=== PATIENT | female | born 1955 | race Caucasian/White ===

== ENCOUNTER 2020-06-08 18:18 | Emergency (ER) | payer OTHER, SELFPAY ==
[2020-06-08 18:38] VITALS: BP 143/82; PULSE 111; RESP 16; TEMP 36.3; O2SAT 96
[2020-06-08 19:19] LABS: Glucose Point of Care 303 (65-105)
--- NOTE | 2020-06-08 19:21 | ED.ABDPAIN ---
HPI - Abdominal Pain General Chief Complaint: Nausea/Vomiting/Diarrhea Stated Complaint: Nausea/Vomitting/Diarrhea Time Seen by Provider: 06/08/20 19:01 Source: patient Mode of arrival: ambulatory Limitations: no limitations History of Present Illness HPI narrative: Patient presents today complaining of a 2-week history of nausea, vomiting, diarrhea, left lower quadrant abdominal pain. She has not vomited in 2 to 3 days, but states that the 2 to 3 days prior to the end of her vomiting states her emesis was blood speckled, then turned black . She continues to have diarrhea 3-4 times per day that is loose. Denies blood or mucus in the stool. Associated symptoms include decreased urination, sweats, chills. Patient describes her left lower quadrant pain as sharp and [id number]. Patient has been able to eat a little bit of cereal and take frequent sips of water. History of diabetes for which she takes Metformin. She has been unable to take her medications for the last 4 to 5 days. She has not been checking her blood sugars as well. Related Data Home Medications Medication Instructions Recorded Confirmed atorvastatin 40 mg PO DAILY 04/11/19 06/08/20 lisinopril 10 mg PO DAILY 04/11/19 06/08/20 metformin 1,000 mg PO BID 04/11/19 06/08/20 albuterol sulfate [ProAir HFA] 2 puff INHALATION PRN PRN 06/08/20 06/08/20 Allergies Allergy/AdvReac Type Severity Reaction Status Date / Time No Known Allergies Allergy Verified 06/08/20 18:26 Review of Systems Review of Systems: Narrative: CONSTITUTIONAL: Denies body aches. + Sweats and chills EYES: Denies visual changes, redness, or discharge. ENT: Denies rhinorrhea, congestion, sore throat, or otalgia. CARDIOVASCULAR: Denies chest pain, palpitations, or edema. RESPIRATORY: Denies cough or dyspnea. GASTROINTESTINAL: + Nausea, vomiting, diarrhea, abdominal pain, decreased appetite GENITOURINARY: Denies dysuria or hematuria.+ Decreased urine output SKIN: Denies rash, itching, or wounds. MUSCULOSKELETAL: Denies back pain, joint pain, or myalgia. NEUROLOGIC: Denies headache, numbness, tingling, or weakness. PSYCH: Denies depression or anxiety. [facility] Past Medical History Medical History (Updated 06/08/20 @ 19:29 by Mallory Del Cid, [facility], ) Delivery with history of Diabetes Hypercholesterolemia Hypertension Social History Social History Gender identity (if verbalized by the patient): Female Comments At time of signature, I have reviewed and agree with nursing past medical, surgical, social and family history unless otherwise noted. Please see nursing chart for further information. There is no relevant family history pertinent to the presenting complaint Exam Narrative: Exam Narrative: GENERAL: Ill-appearing, well-nourished, and in no acute distress. HEAD: Normocephalic, atraumatic. EYES: EOMI. No redness or drainage. Conjunctivae normal. ENT: Mucous membranes pink and slightly dry. Nares clear. No rhinorrhea. TMs normal bilaterally. Throat normal. Uvula midline. NECK: Normal AROM. Supple. No lymphadenopathy. CHEST: No respiratory distress. Clear to auscultation. HEART: Regular rate and rhythm. No murmur appreciated. Normal peripheral pulses. ABDOMEN: Soft, nondistended, normal active bowel sounds. + Tenderness to the left lower quadrant without rebound or guarding. MUSCULOSKELETAL: No bony tenderness. EXTREMITIES: Normal range of motion. No edema. SKIN: Warm, dry, no rash. Capillary refill normal. Slight tenting of skin. Mild generalized skin pallor. NEURO: No focal deficits. Alert and oriented x3. Gait steady. PSYCH: Normal affect. No signs of depression or anxiety. Course Vital Signs Vital signs: Vital Signs Temperature 97.4 F L 06/08/20 18:38 Pulse Rate 111 H 06/08/20 18:38 Respiratory Rate 16 06/08/20 18:38 Blood Pressure 143/82 H 06/08/20 18:38 Pulse Oximetry 96 06/08
== END 2020-06-08 19:22 | disposition short-term general hospital (02) ==
PROVIDERS: Emergency Provider Nurse Practitioner; PCP Family Medicine
DX: E86.0 Dehydration (principal); E11.65 Type 2 diabetes mellitus with hyperglycemia; Z79.84 Long term (current) use of oral hypoglycemic drugs; R19.7 Diarrhea, unspecified; E11.9 Type 2 diabetes mellitus without complications; E78.00 Pure hypercholesterolemia, unspecified; I10 Essential (primary) hypertension
CPT/HCPCS: 82948; 99212; G0463

== ENCOUNTER 2021-02-28 18:42 | Emergency (ER) | payer SELFPAY ==
[2021-02-28 18:52] VITALS: BP 143/93; PULSE 105; RESP 14; TEMP 36.6; O2SAT 100
--- NOTE | 2021-02-28 19:23 | ED.SKABFB ---
HPI - Skin/Abscess/Foreign Bdy General Chief complaint: Skin/Abscess/Foreign Body Stated complaint: Swollen face,Nausea Time Seen by Provider: 02/28/21 19:17 Source: patient and RN notes reviewed Mode of arrival: ambulatory Limitations: no limitations History of Present Illness HPI narrative: Patient presents today complaining of redness and swelling to her right cheek. States that yesterday she had a pimple that she picked and it has progressively worsened throughout the day today. She currently rates her pain 6/10 with she increases with the movement of her mouth or touching the area. She took some Excedrin without relief. History of staph infection many years ago. No recent antibiotic use. MD complaint: discoloration Related Data Home Medications Medication Instructions Recorded Confirmed atorvastatin 40 mg PO DAILY 02/28/21 02/28/21 linagliptin [Tradjenta] 5 mg PO QAM 02/28/21 02/28/21 lisinopril 10 mg PO DAILY 02/28/21 02/28/21 Allergies Allergy/AdvReac Type Severity Reaction Status Date / Time No Known Allergies Allergy Verified 02/28/21 19:06 Review of Systems Review of Systems: CONSTITUTIONAL: Denies body aches, fever, chills, or sweats. EYES: Denies visual changes, redness, or discharge. ENT: Denies rhinorrhea, congestion, sore throat, or otalgia. CARDIOVASCULAR: Denies chest pain, palpitations, or edema. RESPIRATORY: Denies cough or dyspnea. GASTROINTESTINAL: Denies abdominal pain, nausea, vomiting, or diarrhea. GENITOURINARY: Denies dysuria or hematuria. SKIN: Denies rash, itching. Redness to right cheek MUSCULOSKELETAL: Denies back pain, joint pain, or myalgia. NEUROLOGIC: Denies headache, numbness, tingling, or weakness. PSYCH: Denies depression or anxiety. PMFSH Social History Social History (Updated 02/28/21 @ 19:26 by Mallory Del Cid, [facility], ) Smoking status: Current every day smoker Tobacco type: cigarettes Comments At time of signature, I have reviewed and agree with nursing past medical, surgical, social and family history unless otherwise noted. Please see nursing chart for further information. There is no relevant family history pertinent to the presenting complaint Exam Narrative: GENERAL: Well-appearing, well-nourished, and in no acute distress. HEAD: Normocephalic, atraumatic. EYES: EOMI. No redness or drainage. Conjunctivae normal. ENT: Mucous membranes pink and moist. NECK: Normal AROM. CHEST: No respiratory distress. EXTREMITIES: Normal range of motion. No edema. SKIN: Warm, dry, no rash. Capillary refill normal. Normal skin turgor. + Approximately 2 x 2cm area of induration and erythema to the right lateral upper lip/cheek area with surrounding soft erythema. Tender to palpation. No fluctuance noted. NEURO: No focal deficits. Alert and oriented x3. Gait steady. PSYCH: Normal affect. No signs of depression or anxiety. Course Vital Signs Vital signs: Vital Signs Temperature 97.9 F 02/28/21 18:52 Pulse Rate 105 H 02/28/21 18:52 Respiratory Rate 14 02/28/21 18:52 Blood Pressure 143/93 H 02/28/21 18:52 Pulse Oximetry 100 02/28/21 18:52 Temperature 97.9 F 02/28/21 18:52 Pulse Rate 105 H 02/28/21 18:52 Respiratory Rate 14 02/28/21 18:52 Blood Pressure 143/93 H 02/28/21 18:52 Pulse Oximetry 100 02/28/21 18:52 Reviewed. Pt has been instructed to follow up with her PCP regarding her elevated blood pressure today. MDM - Skin/Abscess/Foreign Bdy Differential Diagnosis Differential diagnosis: Likely abscess of skin or subcutaneous tissue, cellulitis, impetigo and contact dermatitis Critical Care Time Critical Care Time Critical Care Time: No Discharge Plan Discharge Clinical Impression: Cellulitis Qualifiers: Site of cellulitis: face Qualified Code(s): L03.211 - Cellulitis of face Patient Disposition: Home, Self-Care Condition: Stable Instructions: Antibiotic Form, Cellulitis (ED) Additional Instructions: Pl
== END 2021-02-28 19:30 | disposition home or self-care (01) ==
PROVIDERS: Emergency Provider Nurse Practitioner; PCP Family Medicine
DX: L03.211 Cellulitis of face (principal); F17.210 Nicotine dependence, cigarettes, uncomplicated
CPT/HCPCS: 99213; G0463

== ENCOUNTER 2021-03-04 19:14 | Emergency (ER) | payer SELFPAY ==
[2021-03-04 19:22] VITALS: BP 111/72; PULSE 104; RESP 18; TEMP 37.1; O2SAT 99
--- NOTE | 2021-03-04 19:35 | ED.WOUNDLAC ---
HPI - Wound/Laceration General Chief Complaint: Skin/Abscess/Foreign Body Stated Complaint: meds not working Source: patient Mode of arrival: ambulatory Limitations: no limitations History of Present Illness HPI narrative: Patient is a 65-year-old female who presents reporting nausea. Patient reports started on clindamycin approximately 4 days ago for cellulitis/abscess to right face. Patient is requesting change of antibiotics to Keflex and Bactrim as she reports they have worked in the past. Patient also requesting prescription for nausea. Small area of erythema and edema at right side of upper lip continues. She reports pain. She denies fever. She denies all other complaints at this time. Patient reports attempting to follow-up with PCP office but was unable to get in to the office until March. Related Data Home Medications Medication Instructions Recorded Confirmed atorvastatin 40 mg PO DAILY 02/28/21 03/04/21 linagliptin [Tradjenta] 5 mg PO QAM 02/28/21 03/04/21 lisinopril 10 mg PO DAILY 02/28/21 03/04/21 Allergies Allergy/AdvReac Type Severity Reaction Status Date / Time No Known Allergies Allergy Verified 02/28/21 19:06 Review of Systems Review of Systems: CONSTITUTIONAL: Denies fever, chills, or sweats. EYES: Denies visual changes, redness, or discharge. ENT: Denies rhinorrhea, congestion, sore throat, or otalgia. CARDIOVASCULAR: Denies chest pain, palpitations, or edema. RESPIRATORY: Denies cough or dyspnea. GASTROINTESTINAL: Reports nausea GENITOURINARY: Denies dysuria or hematuria. SKIN: Reports swelling and lesion to right face MUSCULOSKELETAL: Denies back pain, joint pain, or myalgia. NEUROLOGIC: Denies headache, numbness, dizziness, or weakness. PSYCHIATRIC: Denies anxiety or depression. REPLACED BY [facility] Social History Social History (Updated 02/28/21 @ 19:26 by Mallory Del Cid, [facility], ) Smoking status: Current every day smoker Tobacco type: cigarettes Exam Narrative: GENERAL: Well-appearing, well-nourished, and in no acute distress. HEAD: Normocephalic, atraumatic. EYES: EOMI. No redness or drainage. Conjunctiva are normal. ENT: Mucous membranes pink and moist. CHEST: No respiratory distress. Clear to auscultation. HEART: Regular rate and rhythm. GI: Soft, nontender without rebound, or guarding. EXTREMITIES: Normal range of motion. No edema. SKIN: Approx. 1 x 1 cm area of erythema and induration, fluctuance noted. Small amount of drainage noted. Tenderness with palpation. NEURO: No focal deficits. Alert and oriented x3. Gait steady. PSYCH: Normal affect. No signs of depression or anxiety. Course Vital Signs Vital signs: Vital Signs Temperature 37.1 C 03/04/21 19:22 Pulse Rate 104 H 03/04/21 19:22 Respiratory Rate 18 03/04/21 19:22 Blood Pressure 111/72 03/04/21 19:22 Pulse Oximetry 99 03/04/21 19:22 Temperature 37.1 C 03/04/21 19: Pulse Rate 104 H 03/04/21 19:22 Respiratory Rate 18 03/04/21 19:22 Blood Pressure 111/72 03/04/21 19:22 Pulse Oximetry 99 03/04/21 19:22 Reviewed Procedures Abscess I/D face: Side (if applicable): right Sedation/analgesia: none Technique: needle aspiration Amount of fluid expressed (mL): 1 Irrigation: No Packing used?: none I&D Results: Pus Abcess I&D Additional Comments: 4x4 dressing applied MDM - Wound/Laceration MDM Narrative Medical decision making narrative: Patient has an abscess with surrounding cellulitis to right lateral upper lip area. Needle aspiration performed, dressing applied. Patient requesting change of antibiotics as clindamycin is making her nauseous. Discussed that patient will now have to take 2 antibiotics with Keflex and Bactrim. Patient agrees with plan of care. Patient also to be given Zofran for potential nausea. Patient to follow-up with her PCP in 3 to 5 days for wound recheck. Instructed on wound care and warm compresses. Toña
== END 2021-03-04 19:50 | disposition home or self-care (01) ==
PROVIDERS: Emergency Provider Nurse Practitioner; PCP Family Medicine
DX: L03.211 Cellulitis of face (principal); L02.01 Cutaneous abscess of face; F17.210 Nicotine dependence, cigarettes, uncomplicated
CPT/HCPCS: 10160; 99213; G0463

== ENCOUNTER 2021-04-12 19:22 | Emergency (ER) | payer SELFPAY ==
--- NOTE | 2021-04-12 19:24 | ED.URI ---
HPI - URI/Sore Throat General Chief Complaint: Upper Respiratory Infection Stated Complaint: chest congestion Time Seen by Provider: 04/12/21 19:31 Source: patient and RN notes reviewed Mode of arrival: ambulatory Limitations: no limitations History of Present Illness HPI Narrative: 65-year-old old female presents with 2-week history of rhinorrhea, nasal congestion, cough and postnasal drainage, chest congestion. She reports she has been taking [id number] medication without relief. Denies shortness of breath, fever, body aches, chills. Reports she is a smoker. MD elicited complaint: cough Related Data Home Medications Medication Instructions Recorded Confirmed atorvastatin 40 mg PO DAILY 02/28/21 04/12/21 linagliptin [Tradjenta] 5 mg PO QAM 02/28/21 04/12/21 Allergies Allergy/AdvReac Type Severity Reaction Status Date / Time No Known Allergies Allergy Verified 02/28/21 19:06 Review of Systems Review of Systems: CONSTITUTIONAL: Denies malaise, chills, sweats, or fever. EYES: Denies visual changes, redness, or discharge. ENT: Reports rhinorrhea, congestion, sinus pain. Denies otalgia and sore throat. CARDIOVASCULAR: Denies chest pain, palpitations, or edema. RESPIRATORY: Reports cough, chest congestion. Denies dyspnea. GASTROINTESTINAL: Denies abdominal pain, nausea, vomiting, diarrhea SKIN: Denies rash or itching. MUSCULOSKELETAL: Denies myalgia. NEUROLOGIC: Denies headache. All systems reviewed & are unremarkable except as noted in HPI and below PMFSH Social History Social History (Updated 02/28/21 @ 19:26 by Mallory Del Cid, [facility], ) Smoking status: Current every day smoker Tobacco type: cigarettes Comments At time of signature, agree with nursing past medical, surgical, social and family history. There is no relevant family history pertinent to the presenting complaint Exam Narrative: GENERAL: Well-appearing, well-nourished, and in no acute distress. HEAD: Normocephalic EYES: PERRLA, conjunctivae clear ENT: Nares clear, purulent discharge. Mucous membranes moist. TM pearly hall with dull light reflex bilaterally; no tragal tenderness. Oropharynx not erythematous without lesions. Tonsils not enlarged and without exudate, no drooling, no hoarseness, no trismus, uvula midline. NECK: Supple. No lymphadenopathy CHEST: Clear to auscultation, breath sounds equal. No wheezing, rhonchi, rales, or stridor. No respiratory distress, speaks in full sentences. Cough noted, upper airway congestion HEART: Regular rate and rhythm. No murmur heard. SKIN: Warm, dry, no rash. NEURO: Alert and oriented x3. PSYCH: Normal mood and affect Course Course Emergency Course: Patient is aware of diagnosis, understands and agrees to treatment plan. Anticipatory guidance given. Patient agrees to follow-up as directed and is aware of reasons to seek care at the emergency department. Portions of this record may have been created with voice recognition software Vital Signs Vital signs: Reviewed. Patient has history of hypertension MDM - URI/Sore Throat MDM Narrative Medical decision making narrative: Differential diagnosis considered: Fieror virus, strep pharyngitis, allergic rhinitis, upper respiratory tract infection, sinusitis, rhinosinusitis, nasopharyngitis. viral pharyngitis, otitis media, otitis externa, pneumonia, bronchitis, viral cough syndrome, viral syndrome, and influenza. Exam findings show no acute concerns or changes; patient is non-toxic appearing and is in no distress. Patient is appropriate for outpatient treatment and follow-up. Critical Care Time Critical Care Time Critical Care Time: No Discharge Plan Discharge Clinical Impression: Sinobronchitis Patient Disposition: Home, Self-Care Condition: Stable Instructions: Antibiotic Form, Acute Bronchitis (ED) Additional Instructions: Take medications as directed Recommend antihistamine such as Benadryl at night time and Zyrtec or Nida du
[2021-04-12 19:30] VITALS: BP 150/91; PULSE 95; RESP 16; TEMP 36.9; O2SAT 99
[2021-04-12 19:33] VITALS: BP 150/91; PULSE 95; RESP 16; TEMP 36.9; O2SAT 99
== END 2021-04-12 19:43 | disposition home or self-care (01) ==
PROVIDERS: Emergency Provider Nurse Practitioner; PCP Family Medicine
DX: J32.9 Chronic sinusitis, unspecified (principal); J40 Bronchitis, not specified as acute or chronic; F17.210 Nicotine dependence, cigarettes, uncomplicated; E78.00 Pure hypercholesterolemia, unspecified; I10 Essential (primary) hypertension; Z86.19 Personal history of other infectious and parasitic diseases
CPT/HCPCS: 99213; G0463

== ENCOUNTER 2022-07-25 18:37 | Emergency (ER) | payer MEDICARE, MEDICAID, SELFPAY ==
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
[2022-07-25 18:45] VITALS: BP 131/88; PULSE 102; RESP 20; TEMP 36.6; O2SAT 100
[2022-07-25] MEDS: TETANUS,DIPHTHERIA,AC PERTUSSIS ADULT (0.5 ML) BOOSTRIX IM (19:16)
== END 2022-07-25 19:35 | disposition home or self-care (01) ==
PROVIDERS: Emergency Provider Nurse Practitioner Family; PCP Family Medicine
DX: T23.241A Burn of second degree of multiple right fingers (nail), including thumb, initial encounter (principal); X08.8XXA Exposure to other specified smoke, fire and flames, initial encounter; I10 Essential (primary) hypertension; E11.9 Type 2 diabetes mellitus without complications; E78.00 Pure hypercholesterolemia, unspecified; F17.210 Nicotine dependence, cigarettes, uncomplicated; Z79.84 Long term (current) use of oral hypoglycemic drugs; Z79.51 Long term (current) use of inhaled steroids; Z23 Encounter for immunization
CPT/HCPCS: 90471; 90715; 99213; G0463